=== PATIENT | male | born 1960 | race Caucasian/White ===

== ENCOUNTER 2022-08-09 18:16 | Emergency (ER) | payer OTHER ==
[~2022-08-09] VITALS: Ht 175.3 cm; Wt 72.6 kg
[2022-08-09 18:23] VITALS: BP_SYST 151
--- NOTE | 2022-08-09 19:45 | NUR ---
PT FROM HOME WITH C/O OF SEEING BLACK SPOTS AND SWIRLS IN VISION FOR PAST 3 WEEKS. PT REPORTS SLIGTH PAIN TO BOTH EYES. SAFETY PRECAUTIONS IN PLACE.
--- NOTE | 2022-08-09 20:05 | NUR ---
Dr Interiano evaluating patient at bedside
[2022-08-09 20:50] VITALS: BP_SYST 151
--- NOTE | 2022-08-09 20:50 | NUR ---
Patient does not wish to proceed with medical care recommended by Dr Interiano . Patient given information related to possible complications, up to and including , which could occur as a result of leaving hospital at this time. Patient verbalizes understanding of risks involved leaving against medical advice. Patient has signed AMA form.
== END 2022-08-09 20:50 | disposition left against medical advice (07) ==
LOC: SED 18:16
DX: H33.22 Serous retinal detachment, left eye (principal); Z79.899 Other long term (current) drug therapy
CPT/HCPCS: 99281